=== PATIENT | female | born 1955 | race Caucasian/White ===

== ENCOUNTER 2022-04-13 14:53 | Outpatient (CLI) | payer MEDICARE, SELFPAY ==
--- NOTE | ~2022-04-13 | MM_ITS ---
EXAMINATION: MM screening greg BI w [facility] HISTORY: Screening mammogram TECHNIQUE: Craniocaudal and mediolateral oblique 3-D tomosynthesis images were obtained and synthetic 2-D images were generated. CAD analysis was submitted and interpreted. COMPARISON: No prior mammogram is available for comparison at this institution. BREAST PARENCHYMAL COMPOSITION: The breasts are heterogeneously dense, which may obscure small masses . FINDINGS: Scattered bilateral benign calcifications. There is no evidence of suspicious mass, calcifi cation, or architectural distortion to suggest malignancy in either breast. There has been no suspici ous interval change. IMPRESSION: 1. No mammographic evidence of malignancy. 2. Recommend routine screening mammography in one year. BI-RADS Category 2: Benign finding(s). Reviewed, dictated and finalized at location A. [facility]
== END 2022-04-13 14:54 | disposition home or self-care (01) ==
PROVIDERS: PCP Internal Medicine; Visit Provider Internal Medicine
DX: Z12.31 Encounter for screening mammogram for malignant neoplasm of breast (principal)
CPT/HCPCS: 77063; 77067

== ENCOUNTER 2023-10-27 11:19 | Outpatient (CLI) | payer MEDICARE, SELFPAY ==
--- NOTE | ~2023-10-27 | MM_ITS ---
EXAMINATION: MM screening greg BI w [facility] HISTORY: Screening TECHNIQUE: Craniocaudal and mediolateral oblique 3-D tomosynthesis images were obtained and synthetic 2-D images were generated. CAD analysis was submitted and interpreted. COMPARISON: 04/13/2022 BREAST PARENCHYMAL COMPOSITION: Dense: The breasts are heterogeneously dense, which may obscure small masses FINDINGS: There is no evidence of suspicious mass, calcification, or architectural distortion to sugg est malignancy in either breast. There has been no suspicious interval change. IMPRESSION: 1. No mammographic evidence of malignancy. 2. Recommend routine screening mammography in one year. BI-RADS Category 1: Negative Reviewed, dictated and finalized at location B.
== END 2023-10-27 11:20 ==
LOC: MICIMG 11:20
PROVIDERS: PCP Internal Medicine; Visit Provider Internal Medicine
DX: Z12.31 Encounter for screening mammogram for malignant neoplasm of breast (principal)
CPT/HCPCS: 77063; 77067

== ENCOUNTER 2024-03-18 12:09 | Emergency (ER) | payer MEDICARE, SELFPAY ==
--- NOTE | ~2024-03-18 | XR_ITS ---
EXAMINATION: XR shoulder RT min 2V DATE: 03/18/2024 13:16 INDICATION: Right shoulder injury. TECHNIQUE: 4 views of right shoulder were obtained. COMPARISON: None. FINDINGS: Alignment is normal. No fracture. Joint spaces are normal. IMPRESSION: 1. Normal right shoulder. Reviewed, dictated and finalized at location B. IMPRESSION: 1. Normal right shoulder.
--- NOTE | ~2024-03-18 | CT_ITS ---
EXAMINATION: CT brain wo con DATE: 03/18/2024 13:09 INDICATION: Head injury. TECHNIQUE: Computed tomography (CT) of the head was performed without intravenous contrast. The mA wa s adjusted according to patient size. Iterative reconstruction technique was employed. The dose-lengt h product was 605.33 mGy-cm. COMPARISON: None FINDINGS: There is no intracranial hemorrhage, acute infarction, or abnormal intracranial mass lesion . The ventricles are normal in size. The orbits are normal. There is mild mucosal thickening in the p aranasal sinuses. The mastoid air cells are normal. IMPRESSION: 1. Normal brain. Reviewed, dictated and finalized at location B. IMPRESSION: 1. Normal brain.
--- NOTE | ~2024-03-18 | CT_ITS ---
EXAMINATION: CT cervical spine wo con DATE: 03/18/2024 13:09 INDICATION: Head injury. Neck injury. TECHNIQUE: Computed tomography (CT) of the cervical spine was performed without intravenous contrast. Automated exposure control and iterative reconstruction technique were employed. The dose-length pro duct was 276.44 mGy-cm. COMPARISON: None FINDINGS: There is 10 degrees dextroscoliosis of cervical spine. There is kyphosis of cervical spine. There is 2 mm anterolisthesis of C3 on C4, C4 on C5, and C5 on C6. Vertebral body heights are normal . There is severely decreased disc height from C2-C3 through C6-C7. The following disc levels are spe cifically discussed: C2-C3: There is mild right and severe left uncovertebral joint osteoarthritis. There is moderate righ t and severe left facet joint osteoarthritis. There is mild left neural foraminal stenosis. There is mild central canal stenosis. C3-C4: There is severe bilateral uncovertebral joint osteoarthritis. There is severe bilateral facet joint osteoarthritis. There is mild bilateral neural foraminal stenosis. There is mild central canal stenosis. C4-C5: There is severe bilateral uncovertebral joint osteoarthritis. There is mild right and severe l eft facet joint osteoarthritis. There is mild bilateral neural foraminal stenosis. There is mild cent ral canal stenosis. C5-C6: There is moderate right and severe left uncovertebral joint osteoarthritis. There is severe le ft facet joint osteoarthritis. There is mild bilateral neural foraminal stenosis. There is mild centr al canal stenosis. C6-C7: There is severe bilateral uncovertebral joint osteoarthritis. There is moderate right and rocio re left facet joint osteoarthritis. There is mild bilateral neural foraminal stenosis. There is mild central canal stenosis. C7-T1: There is no uncovertebral joint osteoarthritis. There is severe bilateral facet joint osteoart hritis. There is no neural foraminal stenosis. There is no central canal stenosis. IMPRESSION: 1. No fracture. 2. Severe cervical spondylosis. 3. Cervical dextroscoliosis. Reviewed, dictated and finalized at location B.
[2024-03-18 12:10] VITALS: BP 169/101; PULSE 59; RESP 19; TEMP 36.1; O2SAT 98
[2024-03-18 12:31] VITALS: BP 146/84; PULSE 65; RESP 16; O2SAT 96
[2024-03-18 13:00] VITALS: BP 148/89; PULSE 59; RESP 15; O2SAT 97
--- NOTE | 2024-03-18 13:14 | ED_ITS ---
HPI - Fall General Chief Complaint: Fall Stated Complaint: fall Time Seen by Provider: 03/18/24 12:46 History of Present Illness HPI Narrative: Patient is a 68-year-old female who presents to the ER after a fall. She was walking down steps when her dog pulled her on the leash. She slipped falling onto her right side striking her head against the wall and then landing on her shoulder. She has pain in her neck full as her right shoulder. No numbness or tingling. No LOC. She is not on any blood thinning medications. Related Data Home Medications Medication Instructions Recorded Confirmed evolocumab 140 mg/mL subcutaneous 140 mg subcut ONCE 01/25/24 01/25/24 pen injector (Repatha SureClick) methimazole 5 mg tablet 5 mg PO DAILY 01/25/24 01/25/24 pantoprazole 40 mg tablet,delayed 40 mg PO QAM 01/25/24 01/25/24 release propranolol 60 mg capsule,24 60 mg PO DAILY 01/25/24 01/25/24 hr,extended release Allergies Allergy/AdvReac Type Severity Reaction Status Date / Time Penicillins Allergy Mild Nausea Verified 03/18/24 12:17 Review of Systems Review of Systems: All systems reviewed & are unremarkable except as noted in HPI and below Constitutional: Constitutional: Reports no additional constitutional complaints Cardiovascular: Cardiovascular: Reports no additional cardiovascular complaints Respiratory: Respiratory: Reports no additional respiratory complaints Musculoskeletal: Musculoskeletal: Reports no additional musculoskeletal complaints Neurologic: Reports system reviewed and no additional complaints, except as documented [facility] Past Medical History Medical History GERD (gastroesophageal reflux disease) Thyroid cyst Surgical History Surgical History History of knee replacement, total History of [facility] fundoplication Family History Family History Mother FHx: stomach cancer Father Malignant neoplasm of prostate Hypertension Social History Social History Smoking status: Never smoker Alcohol intake: never Substance use: never Do You Feel Safe in your Home?: Yes Lack of Transportation: No Lack of Food: Never True Current Housing: I Have Housing Concerned About Future Housing: No Difficulty Paying Gas/Electric Bills: No Difficulty Paying for Meds: No Currently Unemployed: No Education: Master's Degree or Higher Difficulty w/ Childcare or Family Care: No Exam Narrative: GENERAL: Well-appearing, well-nourished, and in no acute distress. HEAD: Normocephalic, atraumatic. ENT: Mucous membranes moist. NECK: Supple. C-spine immobilized without midline tenderness. CHEST: Clear to auscultation. No respiratory distress. HEART: Regular rate and rhythm. Normal peripheral pulses. ABDOMEN: Soft, nontender, nondistended. EXTREMITIES: Normal range of motion. No edema. Mild discomfort with pale patient of the right anterior joint line of the shoulder. SKIN: Warm, dry, no rash. NEURO: Alert and oriented x3. PSYCH: Normal mood and affect. Course Course Emergency Course: Patient resting comfortably. Informed of results. C-collar cleared. Discharge home with muscle relaxers and anti-inflammatories. Vital Signs Vital signs: Vital Signs Temperature 97 F L 03/18/24 12:10 Pulse Rate 59 L 03/18/24 12:10 Respiratory Rate 19 03/18/24 12:10 Blood Pressure 169/101 H 03/18/24 12:10 Pulse Oximetry 98 03/18/24 12:10 Oxygen Delivery Room Air 03/18/24 12:10 Temperature 97 F L 03/18/24 12:10 Pulse Rate 59 L 03/18/24 14:16 Respiratory Rate 14 03/18/24 14:16 Blood Pressure 140/78 03/18/24 14:16 Pulse Oximetry 100 03/18/24 14:16 Oxygen Delivery Room Air 03/18/24 12:10 MDM - Fall Imaging Data Radiologist's impression: ITS Impressions Head CT 03/18/24 13:13 IMPRESSION: 1. Normal brain. Cervical Spine CT 03/18/24 13:14 IMPRESSION: 1. No fracture. 2. Severe cervical spondylosis. 3. Cervical dextroscoliosis. Shoulder X-Ray 03/18/24 13:23 IMPRESSION: 1. Normal right shoulder. Discharge Plan Discharge Clinical Impression: Cervical muscle strain, Acute shoulder pain Patient Disposition: Home, Self-Care Condition: Stable Instructions: Cervical Strain (ED), Shoulder Pain (ED) Additional Instructions: As a result of your fall you have muscle strain. Take anti-inflammatories and muscle relaxers to help treat your discomfort. Return the ER if you have additional concerns. Prescriptions: New cyclobenzaprine 10 mg tablet 10 mg PO TID PRN (Reason: muscle spasm) Qty: 20 0RF naproxen 375 mg tablet 375 mg PO BID Qty: 14 0RF No Action methimazole 5 mg tablet 5 mg PO DAILY Patient Comments: Take 1/2 daily propranolol 60 mg capsule,extended release 24 hr 60 mg PO DAILY pantoprazole 40 mg tablet,delayed release (DR/EC) 40 mg PO QAM Repatha SureClick 140 mg/mL pen injector 140 mg subcut ONCE Follow-up/Referrals: Jovani,MD Russell [Primary Care Provider] - 1 Week
[2024-03-18] MEDS: IBUPROFEN 600 MG TABLET PO (13:18)
[2024-03-18 14:16] VITALS: BP 140/78; PULSE 59; RESP 14; O2SAT 100
== END 2024-03-18 15:16 | disposition home or self-care (01) ==
PROVIDERS: Emergency Provider Emergency Medicine; PCP Internal Medicine
DX: S46.911A Strain of unspecified muscle, fascia and tendon at shoulder and upper arm level, right arm, initial encounter (principal); M25.511 Pain in right shoulder; K21.9 Gastro-esophageal reflux disease without esophagitis; W10.9XXA Fall (on) (from) unspecified stairs and steps, initial encounter; M47.812 Spondylosis without myelopathy or radiculopathy, cervical region
CPT/HCPCS: 70450; 72125; 73030; 99284; A9270

== ENCOUNTER 2024-10-28 12:25 | Outpatient (CLI) | payer MEDICARE, SELFPAY ==
--- NOTE | ~2024-10-28 | MM_ITS ---
EXAMINATION: MM screening greg BI w [facility]man HISTORY: Screening TECHNIQUE: Craniocaudal and mediolateral oblique 3-D tomosynthesis images were obtained and synthetic 2-D images were generated. CAD analysis was submitted and interpreted. COMPARISON: Comparison to multiple prior studies sequentially, with oldest reviewed study dated 03/23. BREAST PARENCHYMAL COMPOSITION: Dense: The breasts are heterogeneously dense, which may obscure small masses FINDINGS: There is no evidence of suspicious mass, calcification, or architectural distortion to sugg est malignancy in either breast. There has been no suspicious interval change. IMPRESSION: 1. No mammographic evidence of malignancy. 2. Recommend routine screening mammography in one year. BI-RADS Category 1: Negative Reviewed, dictated and finalized at location B.
== END 2024-10-28 12:26 | disposition home or self-care (01) ==
LOC: MICIMG 12:25
PROVIDERS: PCP Internal Medicine; Visit Provider Internal Medicine
DX: Z12.31 Encounter for screening mammogram for malignant neoplasm of breast (principal)
CPT/HCPCS: 77063; 77067